=== PATIENT | female | born 1980 | race Two or more races ===

== ENCOUNTER 2020-12-14 08:23 | Emergency (ER) | payer MEDICAID ==
[~2020-12-14] VITALS: Ht 167.6 cm; Wt 77.1 kg
--- NOTE | 2020-12-14 08:23 | NUR ---
PT BIBRA 89 FROM HOME C/O CHEST PRESSURE STARTED THIS MORNING. PT IS AAOX4 HUNGARIAN SPEAKING ONLY, NOT IN RESPIRATORY DISTRESS, HOOKED TO RECYCLING COORDINATOR, KEPT RESTED AND COMFORTABLE. WILL CONTINUE TO MONITOR.
--- NOTE | 2020-12-14 08:30 | NUR ---
[employer]ODUCTION [employer]UCK [employer]IVER AT BEDSIDE FOR EKG.
--- NOTE | 2020-12-14 08:33 | NUR ---
SEEN AND EXAMINED BY .
--- NOTE | 2020-12-14 08:40 | NUR ---
PT IV LINE ESTABLISHED BLOOD DRAWN AND SENT TO LAB.
[2020-12-14 09:01] LABS: BASOPHILS % (AUTO) 0.4 % (0.0-2.0); HEMATOCRIT 40 % (33-45); HEMOGLOBIN 13.7 g/dL (11.5-14.8); LYMPHOCYTES # (AUTO) 3.4 K/uL (0.8-4.8); LYMPHOCYTES % (AUTO) 41.8 % (20.0-44.0); MEAN CORPUSCULAR HGB CONC 35 g/dl (31.0-36.0); MEAN CORPUSCULAR VOLUME 96 fL (82-100); MONOCYTES # (AUTO) 0.6 K/uL (0.1-1.30); MONOCYTES % (AUTO) 7.4 % (2.0-12.0); NEUTROPHILS # (AUTO) 4.1 K/uL (1.8-8.9); NEUTROPHILS % (AUTO) 49.4 % (43.0-81.0); PLATELET COUNT (AUTO) 281 K/uL (150-450); RED BLOOD CELL COUNT(AUTO) 4.13 MIL/uL (4.0-5.2); WHITE BLOOD COUNT (AUTO) 8.2 K/uL (4.3-11.0)
[2020-12-14 09:09] LABS: CALCIUM, SERUM 9.4 mg/dL (8.5-10.1); CARBON DIOXIDE 24 mmol/L (21-32); CHLORIDE 101 mmol/L (98-107); CREATININE 0.9 mg/dL (0.6-1.3); GLUCOSE 116 mg/dL (74-106); POTASSIUM 2.9 mmol/L (3.5-5.1); SODIUM SERUM 141 mmol/L (136-145); UREA NITROGEN, BLOOD 11 mg/dL (7-18)
[2020-12-14 10:05] VITALS: BP 134/73
--- NOTE | 2020-12-14 10:05 | NUR ---
IV removed. Catheter intact and site benign. Pressure and 4x4 applied to site. No bleeding noted. Patient discharged to home in stable condition. Written and verbal after care instructions given. Patient verbalizes understanding of instruction.
== END 2020-12-14 10:05 | disposition home or self-care (01) ==
LOC: ER 08:29
DX: R00.2 Palpitations (principal); R06.02 Shortness of breath; F41.9 Anxiety disorder, unspecified
CPT/HCPCS: 36415; 71045-TC; 80048-TC; 84484-TC; 85025-TC